=== PATIENT | female | born 1965 | race Caucasian/White ===

== ENCOUNTER 2017-02-22 09:21 | Day surgery (SDC) | payer OTHER ==
[~2017-02-22] VITALS: Ht 180.3 cm; Wt 86.2 kg
[~2017-02-22 09:21] MED LIST: CEFAZOLIN 2GM PREMIX 50 ML IV PRN; FENTANYL PF 100 MCG/2 ML VIAL. IV PRN; HYDROMORPHONE 2 MG/ML VIAL. IV PRN; IV RINGERS,LACTATED 1000ML 1,000 ML IV SCH; LIDOCAINE 1% 1 ML SYRINGE. ID PRN; ONDANSETRON PF 4 MG/2 ML VIAL. IV PRN; PROCHLORPERAZINE 10 MG/2 ML VIAL. IV PRN
[2017-02-22] MEDS ORDERED: LEVO200T5 (09:40)
[2017-02-22] MEDS ORDERED: VENL75CA6 (09:41)
[2017-02-22] MEDS ORDERED: FAMOTIDINE 20 MG/2 ML VIAL ONE (09:58)
[2017-02-22] MEDS ORDERED: ONDANSETRON PF 4 MG/2 ML VIAL. ONE (09:58)
[2017-02-22] MEDS ORDERED: PROPOFOL 20 ML IV ONE (09:58)
[2017-02-22] MEDS ORDERED: LIDOCAINE 2% 100 MG/5 ML SYRINGE. ONE ×2 (09:58→11:21)
[2017-02-22 10:11] LABS: BASO % 0 % (0-3); EOS % 2 % (0-3); HEMOGLOBIN 12.3 g/dL (12.0-15.5); LYMPH # 0.8 x10^3/uL (1.0-4.8); LYMPH % 14 % (24-48); MEAN CORPUSCULAR HEMOGLOBIN 30 pg (25-35); MEAN CORPUSCULAR HGB CONC 35 g/dL (31-37); MEAN CORPUSCULAR VOLUME 86 fL (79-100); MONO % 7 % (0-9); NEUT % 77 % (31-73); PLATELET COUNT 226 x10^3/uL (140-400); RED BLOOD COUNT 4.07 x10^6/uL (3.50-5.40); RED CELL DISTRIBUTION WIDTH 13.5 % (11.5-14.5); WHITE BLOOD COUNT 5.9 x10^3/uL (4.0-11.0)
[2017-02-22] MEDS ORDERED: MIDAZOLAM HCL/PF 2 MG/2 ML VIAL. ONE (10:18)
[2017-02-22] MEDS ORDERED: FENTANYL PF 100 MCG/2 ML VIAL. ONE (10:19)
[2017-02-22] MEDS ORDERED: ROCURONIUM 50 MG/5 ML VIAL. ONE (10:21)
[2017-02-22] MEDS ORDERED: BUPIVACAINE-EPI 0.25%-1:200000 MPF 30 ML VIAL. ONE (10:26)
[2017-02-22] MEDS ORDERED: SURGICEL HEMOSTAT 4X8 EACH. ONE (10:26)
[2017-02-22] MEDS ORDERED: KETOROLAC 30 MG/ML INJ FOR OR. INJ ONE (10:53)
[2017-02-22] MEDS ORDERED: DEXAMETHASONE SOD PHOS 20 MG/5 ML VIAL. ONE (10:57)
[2017-02-22] MEDS ORDERED: GLYCOPYRROLATE 1 MG/5 ML VIAL. ONE (11:06)
[2017-02-22] MEDS ORDERED: NEOSTIGMINE METHYLSULFATE 5 MG/5 ML SYRINGE. ONE (11:06)
[2017-02-22] MEDS ORDERED: DESFLURANE 31 TO 60 MINUTES IH ONE (11:18)
--- NOTE | 2017-02-22 11:32 | PDOC ---
BRIEF OPERATIVE NOTE Pre-Op Diagnosis ROV cyst Post-Op Diagnosis Bilateral Ovarian Cysts Procedure Performed [facility] BSO Surgeon Dr. Summers Anesthesia Type: General Blood Loss 5 ml Specimens Obtained Bilateral fallopian tubes and ovaries Findings Curt. ovarian cysts Complications none Additional Remarks pt. RYLEE Gillespie Jr, MD Feb 22, 2017 11:32
--- NOTE | 2017-02-22 11:33 | DISCH ---
DISCHARGE INSTRUCTIONS Condition on Discharge Condition on Discharge: Stable Activity After Discharge Activity Instructions for Disc: Activity as tolerated Lifting Instructions after Dis: No heavy lifting Driving Instructions after Dis: Do not drive today Diet after Discharge Diet after Discharge: Regular Contacting the DRClaudia after DC Call your doctor for: Concerns you may have Follow-Up Follow up with: Dr. Summers in 1 week. RYLEE SUMMERS Jr, MD Feb 22, 2017 11:33
[2017-02-22] MEDS: FENTANYL PF 100 MCG/2 ML VIAL. IV PRN ×2 (11:44→11:58)
[2017-02-22] MEDS ORDERED: OXYC-323 PO (12:04)
--- NOTE | 2017-02-22 12:04 | OP ---
DATE OF SURGERY: 02/22/2017 PREOPERATIVE DIAGNOSIS: Right ovarian cyst. POSTOPERATIVE DIAGNOSIS: Bilateral ovarian cysts. PROCEDURE: Laparoscopic BSO. SURGEON: Alfred Summers M.D. ANESTHESIA: GETA. ESTIMATED BLOOD LOSS: 5 mL. COMPLICATIONS: None. FINDINGS: Bilateral ovarian cysts. Normal fallopian tubes bilaterally. SUMMARY: A 51-year-old with the right ovarian complex cyst, counseled on laparoscopic BSO, risks, benefits and expectations and voiced a clear understanding to proceed. DESCRIPTION OF PROCEDURE: The patient was taken to surgery suite and placed in dorsal lithotomy position where she was prepped with Betadine solution for vaginal prep and ChloraPrep for abdominal prep. After adequate anesthesia, moist sponge stick was placed vaginally. Attention was then placed on abdomen. Small transverse skin incision was made just below the umbilicus. The Veress needle was then placed through the infraumbilical incision site. The abdomen was allowed to insufflate up to 1-1/2 liters of CO2 gas. The Veress needle was then removed. A 5-mm trocar was placed. Scope was positioned. Both fallopian tubes and ovaries were visualized. Both ovaries had complex cysts on them. Two incisions were made in the left lower quadrant through which an 11-mm and a 5-mm ports were placed. With the aid of the EnSeal device, the right infundibulopelvic ligament was coagulated and dissected. Same process took place with the left adnexa. The specimens were then removed separately through the Endobag. The suction irrigation was utilized to verify good hemostasis. Small amount of normal saline was left in the posterior cul-de-sac. The trocars were then removed under direct visualization. The abdomen was allowed to deflate as much as possible along with mechanical manipulation. The 11-mm port site was closed at the fascial layer using 2-0 Vicryl suture in a [id number] manner. The three skin incisions were reapproximated using 4-0 Vicryl suture in subcuticular manner; 0.25% Marcaine with epinephrine was injected at each incision site. The moist sponge stick was removed. The patient tolerated the procedure well and was taken to the recovery room in stable condition. Sponge and needle counts correct x 3. ALFRED SUMMERS MD DR: JAGDEEP/elisha JOB#: [id number] / [id number]
[2017-02-22] MEDS: MORPHINE SULFATE 2 MG/ML DISP.SYRIN. IV PRN ×2 (12:10→12:24)
[2017-02-22] MEDS ORDERED: OXYCODONE/APAP 5/325 TABLET. PO ONE (12:15)
[2017-02-22 13:25] VITALS: BP 120/58
--- NOTE | 2017-02-23 16:36 | PATHOLOGY ---
PATHOLOGY REPORT * * * * * * * * FINAL DIAGNOSIS: A. Fallopian tube and ovary, right salpingo-oophorectomy: - Cystic [place] rest of fallopian tube. - Cystic follicle and small simple cyst of ovary. B. Fallopian tube and ovary, left salpingo-oophorectomy: - Cystic follicle and hemorrhagic corpus luteum of ovary. COMMENT: There is no evidence of malignancy. (JPM:mgr; d/t: 02/23/17) REPORT ELECTRONICALLY SIGNED BY: Sam Joseph M.D. DATE/TIME: 02/23/2017 16:35 * * * * * * * * GROSS PATHOLOGY: A. The specimen is received in formalin labeled "Yeni Jay, right fallopian tube and ovary". Received is an 8 g, adnexal specimen consisting of a fimbriated fallopian tube measuring 4.2 cm in length by 0.6 cm in diameter attached to a 2.7 x 2.2 x 1.7 cm ovary. The fallopian tube displays several attached paratubal cysts measuring 0.1 cm. Sectioning reveals a pinpoint to patent lumen. Sectioning through the ovary reveals a single unilocular cystic structure measuring 1.3 cm filled with blood-tinged fluid. The remainder of the specimen displays corpora lutea ranging in size from 0.2 to 0.8 cm and corpora albicantia ranging in size from 0.1 to 0.2 cm. The specimen is submitted representatively in cassettes A1 and A2. B. The specimen is received in formalin labeled "Yeni Jay, left fallopian tube and ovary". Received is an 11 g adnexal specimen consisting of a 3.9 x 2.5 x 2.5 cm cystic ovary with a small attached segment of fallopian tube measuring 2.0 cm in length by 0.5 cm in diameter. Sectioning through the fallopian tube reveals a pinpoint lumen and the fallopian tube appears grossly unremarkable. Sectioning through the ovary reveals a single unilocular cystic structure measuring 0.9 cm, as well as corpora lutea ranging in size from 0.3 to 1.2 cm. The specimen is submitted representatively in cassettes B1 and B2. (CAA; 02/22/2017) INITIAL CPT CODE(S): A; 14842 B; 70991 Professional services performed by [employer] [place] [address] Technical services performed by [facility] at [address] [place] [address], [address], [place] [address]. SPECIMEN(S) RECEIVED: A.Right fallopian tube and ovary B.Left fallopian tube and ovary CLINICAL HISTORY: Right ovarian cyst PATIENT: YENI JAY /AGE: 907/09/1965 (Age: 51) PATIENT #: [id number] ALT CASE #: SPECIMEN COLLECTION DATE: 02/22/2017 SPECIMEN RECEIVED DATE: 02/22/2017 [facility] - [address] [place] [address] - PHONE: [phone] * * * END OF REPORT * * *
== END 2017-02-22 13:36 | disposition home or self-care (01) ==
LOC: SURG 09:21
PROVIDERS: ATTEND Obstetrics & Gynecology
DX: N83.202 Unspecified ovarian cyst, left side (principal); N83.201 Unspecified ovarian cyst, right side; E03.9 Hypothyroidism, unspecified; F41.9 Anxiety disorder, unspecified; F32.9 Major depressive disorder, single episode, unspecified; F17.200 Nicotine dependence, unspecified, uncomplicated; Z72.89 Other problems related to lifestyle; Z90.710 Acquired absence of both cervix and uterus
CPT/HCPCS: 36415; 58661; 85027; 86850; 86900; 86901; A4215; J0690; J0780; J1100; J1885; J2250; J2270; J2405; J2704; J2710; J3010; J3490; J7030; J7120; S0028; 88305